=== PATIENT | female | born 1960 | race Caucasian/White ===

== ENCOUNTER 2018-08-15 08:59 | Observation (INO) | payer OTHER ==
[~2018-08-15] VITALS: Ht 162.6 cm; Wt 80.0 kg
[~2018-08-15 08:59] MED LIST: OLME40TA13 PO; OMEG1CAP97 PO; VITAMIN D3
[2018-08-15] MEDS ORDERED: ONDANSETRON 4 MG INJ IV STA (09:47)
[2018-08-15] MEDS ORDERED: HYDROmorphONE 1 MG/ML SYG IV STA (09:47)
[2018-08-15] MEDS ORDERED: SOD CHLORIDE 0.9% 1,000 ML IV STA (09:47)
[2018-08-15] MEDS ORDERED: LOSA100T15 PO (09:57)
[2018-08-15] MEDS ORDERED: RSV10T PO (09:58)
[2018-08-15] MEDS ORDERED: MECLIZINE 12.5 MG TAB PO ONE (10:00)
[2018-08-15] MEDS ORDERED: LORAZEPAM 2 MG INJ IV ONE (10:30)
--- NOTE | 2018-08-15 10:40 | ERD ---
ER Documentation Chief Complaint Chief Complaint DIZZINES, VOMITING SINCE 0600 TODAY HPI This is a 58-year-old female who states she woke up this morning at 6 AM when she got out of bed the room was spinning violently. The symptoms began rapidly and she had extreme nausea and vomiting at that time. Currently said is much better. She said she is not spinning anymore. However, she is complaining of some mild to moderate mid abdominal pain. She says the pain is crampy in nature and does not radiate. No diarrhea. No recent chest pain shortness of breath fever. No focal neurological complaints no headache ROS All systems reviewed and are negative except as per history of present illness. Medications Home Meds Reported Medications Rosuvastatin Calcium* (Crestor*) 10 Mg Tablet, 10 MG PO QHS, #30 TAB 08/15/18 Losartan Potassium* (Losartan Potassium*) 100 Mg Tablet, 100 MG PO DAILY, TAB 08/15/18 Discontinued Reported Medications Olmesartan Medoxomil (Benicar) 40 Mg Tablet, 40 MG PO DAILY LAST DOESE 1 WEEK AGO. PT IS NOT AMIRAH MEDS DAILY 05/03/11 [Vitamin D3] No Conflict Check, PRN LAST DOESE LAST WEEK 05/03/11 Fish Oil/[place]-3 Fatty Acids (Fish Oil 1,000 Mg Capsule) 1 Cap Capsule, 1 CAP PO PRN PT TAKES FISH OIL AT TIMES LAST DOESE LAST WEEK 1 TAB 05/03/11 Allergies Allergies: Coded Allergies: No Known Drug Allergies (Verified Allergy, Unknown, 08/15/18) PMhx/Soc Medical and Surgical Hx: pt denies Surgical Hx History of Surgery: Yes (Hysterectomy, R nephrectomy) Anesthesia Reaction: No Hx Neurological Disorder: No Hx Respiratory Disorders: No Hx Cardiac Disorders: Yes (HTN) Hx Psychiatric Problems: No Hx Miscellaneous Medical Probl: Yes (Cholesterol) Hx Alcohol Use: No Hx Substance Use: No Hx Tobacco Use: No Smoking Status: Never smoker FmHx Family History: No coronary disease Physical Exam Vitals Vital Signs Date Temp Pulse Resp B/P (MAP) Pulse Ox O2 O2 Flow FiO2 Time Delivery Rate 08/15/18 69 19 150/82 98 Nasal 11:59 (104) Cannula 08/15/18 80 20 128/75 100 Nasal 10:45 (92) Cannula 08/15/18 76 20 140/95 96 Nasal 10:12 (110) Cannula 08/15/18 69 19 190/87 99 Room Air 09:47 (121) 08/15/18 98.1 72 18 217/111 99 09:03 (146) Physical Exam Const: Well-developed, well-nourished Head: Atraumatic, normocephalic Eyes: Normal Conjunctiva, PERRLA, EOMI, normal sclera, no nystagmus ENT: Normal External Ears, Nose and Mouth, moist mucus membranes. Neck: Full range of motion. No meningismus, no lymphadenopathy. Resp: Clear to auscultation bilaterally, no wheezing, rhonchi, rales Cardio: Regular rate and rhythm, no murmurs, S1 S2 present Abd: Soft, mild mid abdominal tenderness, non distended. Normal bowel sounds, no guarding or rebound, no pulsitile abdominal masses or bruits Skin: No petechiae or rashes, no ecchymosis , no maculopapular rash Back: No midline or flank tenderness Ext: No cyanosis, or edema, FROM x 4, normal inspection, neurovascularly intact x 4 Neur: Awake and alert, STR 5/5 x 4, sensation intact x 4, no focal findings, cerebellum intact, negative Hallpike Psych: Normal Mood and Affect Result Diagram: 08/15/18 0950 08/15/18 0950 Results 24 hrs Laboratory Tests Test 08/15/18 09:50 White Blood Count 8.7 10^3/ul Red Blood Count 4.65 10^6/ul Hemoglobin 13.0 g/dl Hematocrit 40.4 % Mean Corpuscular Volume 86.9 fl Mean Corpuscular Hemoglobin 28.0 pg Mean Corpuscular Hemoglobin Concent 32.2 g/dl Red Cell Distribution Width 14.1 % Platelet Count 233 10^3/UL Mean Platelet Volume 9.9 fl Immature Granulocytes % 0.300 % Neutrophils % 68.4 % Lymphocytes % 25.3 % Monocytes % 3.3 % Eosinophils % 2.4 % Basophils % 0.3 % Nucleated Red Blood Cells % 0.0 /100WBC Immature Granulocytes # 0.030 10^3/ul Neutrophils # 6.0 10^3/ul Lymphocytes # 2.2 10^3/ul Monocytes # 0.3 10^3/ul Eosinophils # 0.2 10^3/ul Basophils # 0.0 10^3/ul Nucleated Red Blood Cells # 0.0 10^3/ul Sodium Level 144 mmol/L Potassium Level 4.9 mmol/L Chloride Level 107 mmol/L Carbon Dioxide Level 24 mmol/L Anion Gap 13 Blood Urea Nitrogen 17 mg/dl Creatinine 0.87 mg/dl Est Glomerular Filtrat Rate mL/min > 60 mL/min Glucose Level 197 mg/dl Calcium Level 10.3 mg/dl Total Bilirubin 0.5 mg/dl Direct Bilirubin 0.00 mg/dl Indirect Bilirubin 0.5 mg/dl Aspartate Amino Transf (AST/SGOT) 23 IU/L Alanine Aminotransferase (ALT/SGPT) 12 IU/L Alkaline Phosphatase 141 IU/L Total Protein 7.9 g/dl Albumin 4.8 g/dl Globulin 3.10 g/dl Albumin/Globulin Ratio 1.54 Lipase 115 U/L Current Medications Medications Dose Sig/Dick Start Time Status Last (Trade) Ordered Route PRN Stop Time Admin Dose Reason Admin Sodium 1,000 ml @ Q1H STAT 08/15/18 DC 08/15/18 Chloride 1,000 mls/hr IV 09:47 09:54 08/15/18 10:46 1 mg ONCE STAT 08/15/18 DC 08/15/18 Hydromorphone IV 09:47 09:53 HCl 08/15/18 09:49 (Dilaudid) Ondansetron 4 mg ONCE STAT 08/15/18 DC 08/15/18 HCl (Zofran IV 09:47 09:53 Inj) 08/15/18 09:49 Meclizine 25 mg ONCE ONCE 08/15/18 DC 08/15/18 HCl PO 10:00 09:54 (Antivert) 08/15/18 10:01 Lorazepam 1 mg ONCE ONCE 08/15/18 DC 08/15/18 (Ativan) IV 10:30 10:06 08/15/18 10:31 IV Flush 10 ml STK-MED 08/15/18 DC 08/15/18 (NS 10 ml) ONCE .ROUTE 11:41 12:09 08/15/18 11:42 Sodium 100 ml @ ud STK-MED 08/15/18 DC 08/15/18 Chloride ONCE .ROUTE 11:41 12:09 08/15/18 11:42 Iohexol 150 ml STK-MED 08/15/18 DC 08/15/18 (Omnipaque ONCE .ROUTE 11:41 12:09 300mg/ ml) 08/15/18 11:42 Procedures/MDM Patient: JERALD JACOBS : 1960 Age: 58 Sex: F MR #: [id number] [facility] #: [id number] DOS: 08/15/18 0947 Ordering MD: CEE CARDOSO DO Location: E/R Room/Bed: PROCEDURE: CT Abdomen and Pelvis with contrast. CLINICAL INDICATION: Abdominal pain. TECHNIQUE: CT scan of the abdomen and pelvis with contrast was performed on a multi-detector high-resolution CT scanner. The patient was scanned following the uncomplicated intravenous administration of 100 cc of Omnipaque 300. Coronal and sagittal reformatted images were obtained from the axial source images. One or more of the following dose reduction techniques were used: Automated exposure control, adjustment of the mA and/or kV according to patient size, use of iterative reconstruction technique. Images were reviewed on a high-resolution PACS workstation. DICOM images are available. The total exam CTDI equals 23.19 mGy and the total exam DLP equals 1414.53 mGy-cm. COMPARISON: None available. FINDINGS: CT ABDOMEN: Visualized lung bases: Bilateral lower lobe infiltrates are present. No significant pleural/pericardial effusion. The heart size is normal. Liver: The liver is enlarged measuring 19 cm and demonstrates normal overall enhancement. No evidence of solid hepatic mass or intrahepatic ductal dilatation. Patent portal vein. Gallbladder and bile ducts: Unremarkable. Spleen: Borderline enlarged measuring 12.4 cm Pancreas: Unremarkable. No ductal dilatation, mass, or peripancreatic stranding. Adrenal glands: Unremarkable. Kidneys: The right kidney is surgically absent. The right renal fossa is unremarkable. The left kidney is unremarkable. No hydronephrosis, stones, or solid lesions seen. Vasculature: No abdominal aortic aneurysm. Negative IVC. Lymph nodes: No adenopathy. GI: Scattered diverticula are present throughout the colon. There is a small hiatal hernia. There is no evidence of inflamed appendix. Negative terminal ileum. Negative rectum. No evidence of obstruction. Peritoneal cavity: There is a eduardo appearance/fat stranding of the mid mesentery with mildly prominent lymph nodes measuring up to 1.6 x 1.2 cm. No free fluid or free air. There is a small fat-containing umbilical hernia. CT PELVIS: : Normal appearing bladder, distal ureters, and ureterovesiculal junctions. The uterus is surgically absent. The 2.7 cm right ovarian cyst is present. Peritoneal cavity: No free fluid or free air. Lymph nodes: No adenopathy. Osseous structures: No acute osseous injury. No lytic or blastic lesions. Other: None. IMPRESSION: 1. Eduardo appearance/fat stranding of the mid mesentery with associated prominent lymph nodes, may represent mesenteric panniculitis/adenitis, less likely lymphoma. 2. Bilateral lower lobe infiltrates, concerning for pneumonia. 3. Surgically absent right kidney. The renal fossa is unremarkable. 4. Diverticulosis. 5. Status post hysterectomy. 6. Mildly prominent 2.7 cm right adnexal cyst. Followup pelvic ultrasound and 46 weeks may be useful. 7. Hepatomegaly and borderline splenomegaly. 8. Small hiatal hernia. RPTAT: JJ .Damián Thurston MD, MD Date Time Electronically viewed and signed by .Damián Thurston MD, MD on 08/15/2018 12:05 .A/ CC: CEE CARDOSO DO [phone] [place] [id number] Radiology Main Line: [phone] DIAGNOSTIC IMAGING REPORT Patient: JERALD JACOBS : 1960 Age: 58 Sex: F MR #: [id number] DOS: 08/15/18 0947 Ordering MD: CEE CARDOSO DO Location: E/R Room/Bed: PROCEDURE: CT Brain without contrast. CLINICAL INDICATION: Pain. TECHNIQUE: A CT of the brain without contrast was performed utilizing axial sections from the skull base through the vertex. One or more the following does reduction techniques were utilized: Automated exposure control, adjustment of the mA/ or kV according to patient's size, or use of iterative reconstruction technique. Total exam CTDIvol is 39 MGy and DLP is 634 mGy-cm. DICOM images are available. COMPARISON: None available. FINDINGS: The ventricles and sulci are mildly prominent indicative of volume loss. There is no intracranial hemorrhage, mass effect or midline shift. No abnormal intra- axial or extra-axial fluid collections are seen. The portillo/white matter differentiation is well preserved. There are mild scattered foci of hypoattenuation in the periventricular, deep, and subcortical white matter, which are nonspecific in etiology but likely reflect chronic small vessel ischemic changes. There are mild intracranial vascular calcifications consistent with atherosclerosis. The visualized paranasal sinuses are essentially clear. IMPRESSION: 1. No acute intracranial hemorrhage, transcortical infarction or mass effect. 2. Mild intracranial atherosclerosis and chronic small vessel ischemic changes. 3. Mild generalized cerebral volume loss. RPTAT: UU .Alvaro Arroyo MD, Date Time Electronically viewed and signed by .Alvaro Arroyo MD, MD on 08/15/2018 12:11 .N/ CC: CEE CARDOSO DO [id number] We will draw blood cultures and give Rocephin and vancomycin. The patient is not septic. The patient is meeting she had a cough for couple days. There is some bibasilar pneumonia on her CT scan. Will call Dr. Rodriguez for admission Departure Diagnosis: Primary Impression: Bilateral pneumonia Pneumonia type: due to unspecified organism Lung location: lower lobe of lung Qualified Codes: J18.1 - Lobar pneumonia, unspecified organism Additional Impressions: Vertigo Abdominal pain Abdominal location: unspecified location Qualified Codes: R10.9 - Unspecified abdominal pain Condition: Stable CEE CARDOSO DO August 15, 2018 10:40
[2018-08-15] MEDS ORDERED: SOD CHLORIDE 0.9% 100 ML ONE (11:41)
[2018-08-15] MEDS ORDERED: IOHEXOL 300MG/ML 150 ML BTL ONE (11:41)
[2018-08-15] MEDS ORDERED: CEFEPIME 1GM/50 ML (PMX) 50 ML IVPB STA (13:13)
[2018-08-15] MEDS ORDERED: VANCOMYCIN 1 GM (PMX) 250 ML IVPB STA (13:13)
[2018-08-15] MEDS ORDERED: ACETAMINOPHEN 325 MG TAB PO PRN (13:30)
[2018-08-15] MEDS ORDERED: ONDANSETRON 4 MG INJ IV PRN ×2 (13:30→18:00)
--- NOTE | 2018-08-15 16:36 | HP ---
DATE OF ADMISSION: 08/15/2018 CHIEF COMPLAINT: Severe dizziness. 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 This was preceded wi th abdominal pain. The patient denies any fevers or chills. No cough. No shortness of breath. Ini tial evaluation revealed fully controlled hypertension. The patient has signs and symptoms of vertig o. CAT scan of the abdomen and pelvis was unremarkable except bilateral lower lobe infiltrates. Blo od pressure improved while the patient was in the emergency room. However, she continued to complain of abdominal pain. PAST MEDICAL HISTORY: 1. Hypertension. 2. Hyperlipidemia. MEDICATIONS PRIOR TO ADMISSION: 1. Losartan. 2. Rosuvastatin. ALLERGIES: THE PATIENT HAS NO KNOWN DRUG ALLERGIES. PHYSICAL EXAMINATION: GENERAL: Well-developed, well-nourished female who is in no apparent distress. VITAL SIGNS: Stable. She is afebrile. HEENT: Extraocular muscles are intact. Pupils are equal and reactive to light bilaterally. Sclerae are anicteric. Oropharynx is clear and moist. NECK: Supple. No JVD. No carotid bruits. LUNGS: Clear to auscultation bilaterally. CARDIAC: Regular rate and rhythm. No murmurs, rubs or gallops. ABDOMEN: Soft, diffusely tender to palpation. No rebound or guarding. Normoactive bowel sounds. EXTREMITIES: No clubbing, cyanosis or edema. NEUROLOGICAL: The patient has horizontal nystagmus. Sensory and motor are intact. ASSESSMENT: 1. A 58-year-old female with possible bilateral lower lobe pneumonia. 2. Abdominal pain of unclear etiology. 3. Benign positional vertigo. 4. Hypertension, better controlled. 5. Hyperlipidemia. PLAN: 1. Place in tele observation. 2. Start oral Levaquin. 3. Continue losartan. 4. Meclizine as needed. Dictated By: LILY RONDON/ASIYA Conf#: [id number] DID#: [id number] CC: CEE CARDOSO DO;*EndCC*
[2018-08-15 17:00] VITALS: BP 224/100; PULSE 82; RESP 16
[2018-08-15 17:29] VITALS: Ht 162.6 cm; Wt 80.0 kg
[2018-08-15] MEDS ORDERED: MECLIZINE 25 MG TAB PO PRN (18:00)
[2018-08-15] MEDS ORDERED: LOSARTAN 50 MG TAB PO ONE (18:00)
[2018-08-15] MEDS ORDERED: morphine 2 MG INJ IV PRN (18:00)
[2018-08-15] MEDS: HYDROCHLOROTHIAZIDE 25 MG TAB PO SCH (18:06)
[2018-08-15 19:50] VITALS: BP 167/92; PULSE 77; RESP 18
[2018-08-15 21:20] VITALS: BP 114/64; PULSE 74
[2018-08-16 02:02] VITALS: BP 112/62; PULSE 74; RESP 18
[2018-08-16 07:47] VITALS: BP 137/73; PULSE 61; RESP 18
[2018-08-16] MEDS ORDERED: LOSARTAN 50 MG TAB PO SCH (09:00)
[2018-08-16] MEDS: HYDROCHLOROTHIAZIDE 25 MG TAB PO SCH (09:24)
[2018-08-16] MEDS ORDERED: MECL-77 PO (11:09)
[2018-08-16] MEDS ORDERED: HYDR25TA6 PO (11:09)
--- NOTE | 2018-08-16 11:10 | PDOCDIS ---
Discharge Instructions CONDITION [id number] Patient Condition: [id number] Good HOME CARE INSTRUCTIONS: [id number] Diet Instructions: [id number] y FOLLOW UP/APPOINTMENTS Follow-up Plan pcp 1 week LILY IVAN MD August 16, 2018 11:10
[2018-08-16 12:03] VITALS: BP 135/74; PULSE 64; RESP 19
--- NOTE | 2018-08-16 19:50 | DS ---
DATE OF ADMISSION: 08/15/2018 DATE OF DISCHARGE: 08/16/2018 DISCHARGE DIAGNOSES: 1. A 58-year-old female with benign positional vertigo, resolved. 2. Poorly controlled hypertension. 3. Hyperlipidemia. 4. History of renal cell carcinoma. 5. Status post right nephrectomy. 6. Status post hysterectomy. HOSPITAL COURSE: A 58-year-old female who presented to emergency room with complaint of vertigo sinc e she woke up early in the morning. She denied any focal weakness or numbness. Initial evaluation r evealed poorly controlled hypertension. Blood pressure was as high as 217/111. Patient also complai nia of mild abdominal discomfort. CAT scan of the abdomen and pelvis showed bilateral lower lobe inf iltrates. However, patient has no clinical signs and symptoms suggestive of pneumonia. Blood pressu re was better are controlled after hydrochlorothiazide was added. She is in stable condition for dis charge. MEDICATIONS ON DISCHARGE: 1. Losartan 100 mg p.o. daily. 2. Hydrochlorothiazide 25 mg p.o. daily. 3. Rosuvastatin 10 mg p.o. at bedtime. 4. Meclizine 25 mg p.o. q. 6 hours p.r.n. The patient was asked to follow up with her primary care provider in 1 week. Dictated By: LILY RONDON/ASIYA Conf#: [id number] DID#: [id number]
== END 2018-08-16 14:05 | disposition home or self-care (01) ==
LOC: E/R 08:59 → 2NE 13:27
PROVIDERS: ADMIT Internal Medicine; ATTEND Internal Medicine
DX: H81.10 Benign paroxysmal vertigo, unspecified ear (principal); I10 Essential (primary) hypertension; E78.5 Hyperlipidemia, unspecified; R10.9 Unspecified abdominal pain; Z85.528 Personal history of other malignant neoplasm of kidney
CPT/HCPCS: 36415; 70450; 74177; 80053; 81001; 83690; 85025; 87040; 96374; 96375; 99285; G0378; J0692; J1170; J2060; J2270; J2405; J3370; J7030; Q9967